=== PATIENT | female | born 1975 | race Caucasian/White ===

== ENCOUNTER 2016-08-10 17:45 | Emergency (ER) | payer MEDICAID, OTHER ==
[~2016-08-10] VITALS: Ht 175.3 cm; Wt 77.1 kg
[~2016-08-10 17:45] MED LIST: CITA-30
[2016-08-10 19:38] LABS: Basophils # (auto) 0 uL; Basophils % (auto) 0.7 % (0.0-2.0); Eosinophils # (auto) 0.1 uL; Eosinophils % (auto) 1.7 % (0.0-7.0); Lymphocytes # (auto) 1.3 uL; Lymphocytes % (auto) 21.7 % (10.0-50.0); Mean Corpuscular Hemoglobin 28.3 pg (28.0-32.0); Mean Corpuscular Hgb Conc. 32.5 g/dL (32.0-36.0); Mean Corpuscular Volume 86.8 fL (80.0-100.0); Mean Platelet Volume 9.9 fL (7.4-10.4); Monocytes # (auto) 0.2 uL; Monocytes % (auto) 3.9 % (0.0-12.0); Neutrophils # (auto) 4.3 uL; Platelet Count (auto) 271 10^3/uL (140-450); Red Cell Distribution Width 14.6 % (11.6-16.0); SUSPECT VIEW TRANSMISSION; White Blood Cell 5.9 10^3/uL (4.4-10.8)
[2016-08-10 19:39] LABS: Albumin 4.2 g/dL (3.4-5.0); Alkaline Phosphatase 41 U/L (45-117); Anion Gap 11 (5-15); Aspartate Aminotransferase 17 U/L (15-37); Bilirubin, Total 0.3 mg/dL (0.2-1.0); Blood Urea Nitrogen 11 mg/dL (7-18); Calcium 9.2 mg/dL (8.5-10.1); Carbon Dioxide 26 mmol/L (21-32); Chloride 106 mmol/L (98-107); GFR African American 78 mL/min; GFR Non-African American 64 mL/min; Glucose 87 mg/dL (74-106); Potassium 4.1 mmol/L (3.5-5.1); Sodium 143 mmol/L (136-145); Total Protein 7.6 g/dL (6.4-8.2)
[2016-08-10 23:25] LABS: Urine Bilirubin Negative (Negative); Urine Blood TRACE /uL (Negative); Urine Color Yellow (Yellow); Urine Glucose Normal (Normal); Urine Nitrite Negative (Negative); Urine RBC 4 /hpf (0 - 4); Urine Squamous Epithelial Cell FEW /hpf (<5); Urine Urobilinogen Normal (Negative)
[2016-08-10 23:26] LABS: Urine Ketone 1+ (Negative)
[2016-08-10] MEDS ORDERED: LORazepam 0.5 MG TAB PO ONE (23:45)
[2016-08-11] MEDS ORDERED: ACETAMINOPHEN 325 MG TAB PO ONE ×2 (00:15)
[2016-08-11 01:33] VITALS: BP 113/68
== END 2016-08-11 01:43 | disposition home or self-care (01) ==
LOC: ER 17:47
DX: R20.2 Paresthesia of skin (principal); R51 Headache; R06.02 Shortness of breath; G89.29 Other chronic pain; M54.9 Dorsalgia, unspecified; Z88.6 Allergy status to analgesic agent
CPT/HCPCS: 36415; 70450; 80053; 81001; 81025; 84484; 85025; 93005

== ENCOUNTER 2017-02-08 01:27 | Emergency (ER) | payer MEDICAID ==
[~2017-02-08] VITALS: Ht 175.3 cm; Wt 72.6 kg
[~2017-02-08 01:27] MED LIST changes: +ACET650T11 PO; +ASPI1TAB PO; +BACL10TA PO; +BUPR75TA9 PO; -CITA-30; +FLUT50SP13; +GABA-494 PO; +LORA-622 PO
[2017-02-08 02:37] LABS: Basophils # (auto) 0.1 uL; Eosinophils # (auto) 0.3 uL; Hemoglobin 10.8 g/dL (12.2-16.2); Lymphocytes # (auto) 1.4 uL; Mean Corpuscular Volume 83.3 fL (80.0-100.0); Mean Platelet Volume 8.9 fL (6.9-10.8); Neutrophils # (auto) 3.1 uL; White Blood Cell 5.2 10^3/uL (4.4-10.8)
[2017-02-08 02:38] LABS: Eosinophils % (auto) 4.8 % (0.0-7.0); Hematocrit 33.3 % (36.0-46.0); Lymphocytes % (auto) 26.5 % (10.0-50.0); Mean Corpuscular Hemoglobin 27.1 pg (28.0-32.0); Mean Corpuscular Hgb Conc. 32.6 g/dL (32.0-36.0); Monocytes # (auto) 0.4 uL; Monocytes % (auto) 7.5 % (0.0-12.0); Neutrophils % (auto) 60.2 % (37.0-80.0); Platelet Count (auto) 225 10^3/uL (140-450); Red Cell Distribution Width 14.4 % (11.8-14.3)
[2017-02-08 02:54] LABS: Albumin 3.8 g/dL (3.4-5.0); Anion Gap 11 (5-15); Aspartate Aminotransferase 15 U/L (15-37); BUN/Creatinine Ratio 16.2; Blood Urea Nitrogen 17 mg/dL (7-18); Calcium 9.2 mg/dL (8.5-10.1); Carbon Dioxide 24 mmol/L (21-32); Chloride 108 mmol/L (98-107); GFR African American 74 mL/min; GFR Non-African American 61 mL/min; Glucose 95 mg/dL (74-106); Partial Thromboplastin Time 25.9 sec (22.64-33.71); Prothrombin Time 10.9 sec (9.37-12.3); Sodium 143 mmol/L (136-145)
[2017-02-08 02:58] LABS: Alkaline Phosphatase 38 U/L (45-117); Bilirubin, Total 0.3 mg/dL (0.2-1.0); Total Protein 7.1 g/dL (6.4-8.2)
[2017-02-08] MEDS ORDERED: KETOROLAC TROMETH 60MG/2ML VIAL IM ONE (06:45)
[2017-02-08 07:03] VITALS: BP 117/54
== END 2017-02-08 08:13 | disposition home or self-care (01) ==
LOC: EDBD 01:27 → ER 01:27
DX: R07.89 Other chest pain (principal); R10.13 Epigastric pain; G89.29 Other chronic pain; Z79.82 Long term (current) use of aspirin; Z79.899 Other long term (current) drug therapy; Z90.49 Acquired absence of other specified parts of digestive tract
CPT/HCPCS: 36415; 71020; 80053; 84484; 84702; 85025; 85610; 85730; 93005; 96372; 99285; J1885

== ENCOUNTER 2017-02-21 22:31 | Emergency (ER) | payer MEDICAID ==
[~2017-02-21] VITALS: Ht 175.3 cm; Wt 72.6 kg
[2017-02-21 23:13] LABS: Basophils # (auto) 0 uL; Basophils % (auto) 0.8 % (0.0-2.0); Eosinophils # (auto) 0.2 uL; Eosinophils % (auto) 5.6 % (0.0-7.0); Hematocrit 32.7 % (36.0-46.0); Hemoglobin 10.6 g/dL (12.2-16.2); Lymphocytes % (auto) 27.7 % (10.0-50.0); Mean Corpuscular Hgb Conc. 32.6 g/dL (32.0-36.0); Mean Corpuscular Volume 82.8 fL (80.0-100.0); Monocytes # (auto) 0.4 uL; Monocytes % (auto) 10.5 % (0.0-12.0); Neutrophils % (auto) 55.4 % (37.0-80.0); Nucleated Red Blood Cells % 0.1 %; Platelet Count (auto) 218 10^3/uL (140-450); Red Blood Cells 3.95 10^6/uL (4.0-5.20); Red Cell Distribution Width 14.6 % (11.8-14.3); White Blood Cell 3.7 10^3/uL (4.4-10.8)
[2017-02-21 23:29] LABS: BUN/Creatinine Ratio 10.6; Calcium 8.9 mg/dL (8.5-10.1)
[2017-02-21 23:42] LABS: Potassium 2.7 mmol/L (3.5-5.1)
[2017-02-21 23:46] LABS: Bilirubin, Total 0.4 mg/dL (0.2-1.0); Total Protein 7.2 g/dL (6.4-8.2)
[2017-02-22 02:08] LABS: Urine Bacteria NONE SEEN /hpf (None Seen); Urine Blood TRACE /uL (Negative); Urine Specific Gravity 1.003 (1.001-1.035); Urine WBC 1 /hpf (0 - 5)
[2017-02-22 02:25] LABS: Alcohol, Urine < 3.0 mg/dL (0-5); Amphetamine Screen, Urine NEGATIVE (NEGATIVE); Barbiturate Scree,Urine NEGATIVE (NEGATIVE); Benzodiazephine Screen, Urine NEGATIVE (NEGATIVE); Cannabinoid Screen, Urine NEGATIVE (NEGATIVE); Cocaine Screen, Urine NEGATIVE (NEGATIVE); Opiate Scree,Urine NEGATIVE (NEGATIVE); Phencyclidine Screen, Urine NEGATIVE (NEGATIVE)
[2017-02-22] MEDS ORDERED: POTASSIUM CHL 20 Meq TABLET PO ONE ×2 (05:15→06:30)
[2017-02-22 05:36] VITALS: BP 127/82
== END 2017-02-22 06:23 | disposition home or self-care (01) ==
LOC: EDBD 22:31 → EDUNIT# 22:31 → ER 22:34
DX: R53.1 Weakness (principal); E87.6 Hypokalemia; H53.8 Other visual disturbances; R07.9 Chest pain, unspecified; Z79.82 Long term (current) use of aspirin; Z88.8 Allergy status to other drugs, medicaments and biological substances
CPT/HCPCS: 36415; 80053; 80307; 81001; 85025

== ENCOUNTER 2017-02-22 08:00 | Emergency (ER) | payer MEDICAID ==
[~2017-02-22] VITALS: Ht 175.3 cm; Wt 72.6 kg
[2017-02-22 08:59] VITALS: BP 118/62
== END 2017-02-22 10:48 | disposition home or self-care (01) ==
LOC: ER 08:00
DX: H53.8 Other visual disturbances (principal); T50.905A Adverse effect of unspecified drugs, medicaments and biological substances, initial encounter; R53.1 Weakness; R07.9 Chest pain, unspecified; R51 Headache; Y92.89 Other specified places as the place of occurrence of the external cause; Z90.49 Acquired absence of other specified parts of digestive tract; Z79.82 Long term (current) use of aspirin; Z88.6 Allergy status to analgesic agent

== ENCOUNTER 2017-04-16 17:02 | Emergency (ER) | payer MEDICAID ==
[~2017-04-16] VITALS: Ht 175.3 cm; Wt 70.3 kg
[~2017-04-16 17:02] MED LIST changes: -ACET650T11 PO; +ACET650T12 PO
[2017-04-16 19:21] LABS: Basophils # (auto) 0.1 uL; Eosinophils # (auto) 0.3 uL; Lymphocytes # (auto) 1.3 uL; Mean Corpuscular Hemoglobin 26.4 pg (28.0-32.0); Monocytes # (auto) 0.4 uL; Red Cell Distribution Width 15.8 % (11.8-14.3); White Blood Cell 5.9 10^3/uL (4.4-10.8)
[2017-04-16 19:24] LABS: Basophils % (auto) 1.2 % (0.0-2.0); Eosinophils % (auto) 4.3 % (0.0-7.0); Hematocrit 36.5 % (36.0-46.0); Hemoglobin 11.8 g/dL (12.2-16.2); Lymphocytes % (auto) 21.7 % (10.0-50.0); Mean Corpuscular Hgb Conc. 32.4 g/dL (32.0-36.0); Mean Corpuscular Volume 81.7 fL (80.0-100.0); Monocytes % (auto) 6.9 % (0.0-12.0); Neutrophils # (auto) 3.9 uL; Neutrophils % (auto) 65.9 % (37.0-80.0); Nucleated Red Blood Cells % 0.2 %; Platelet Count (auto) 257 10^3/uL (140-450); Red Blood Cells 4.47 10^6/uL (4.0-5.20)
[2017-04-16 19:41] LABS: Albumin 4.2 g/dL (3.4-5.0); Calcium 9.1 mg/dL (8.5-10.1); Potassium 3.5 mmol/L (3.5-5.1)
[2017-04-16 19:43] LABS: BUN/Creatinine Ratio 11.8
[2017-04-16 19:45] LABS: Bilirubin, Total 0.5 mg/dL (0.2-1.0); Total Protein 8.2 g/dL (6.4-8.2)
[2017-04-17 00:11] LABS: Urine Bacteria NONE SEEN /hpf (None Seen); Urine Blood TRACE /uL (Negative); Urine Specific Gravity 1.018 (1.001-1.035); Urine WBC 2 /hpf (0 - 5)
[2017-04-17] MEDS ORDERED: DONNATAL 5ml ORAL Elix (BELLADONNA ALK-PHENOBARB) PO ONE (08:30)
[2017-04-17] MEDS ORDERED: LIDOCAINE VISCOUS 2% 15ML UD PO ONE (08:30)
[2017-04-17] MEDS ORDERED: ALUM & MAG HYDROX-SIMETH LIQ(MAALOX) 30 ML PO ONE (08:30)
[2017-04-17] MEDS ORDERED: LORazepam 0.5 MG TAB PO ONE (09:30)
[2017-04-17] MEDS ORDERED: PROMETHAZINE HCL 6.25 MG/5 ML ORAL SYRUP PO ONE (09:45)
[2017-04-17] MEDS ORDERED: IOHEXOL 350 MG/ML 100ML IJ ONE (10:33)
[2017-04-17 12:13] VITALS: BP 114/68
== END 2017-04-17 12:36 | disposition home or self-care (01) ==
LOC: EDBD 17:02 → ER 17:12
DX: K29.70 Gastritis, unspecified, without bleeding (principal); K21.9 Gastro-esophageal reflux disease without esophagitis; Z90.49 Acquired absence of other specified parts of digestive tract; Z79.82 Long term (current) use of aspirin
CPT/HCPCS: 36415; 71275; 80053; 81001; 85025; 93005; 99285; Q9967

== ENCOUNTER 2017-06-08 12:42 | Emergency (ER) | payer MEDICAID ==
[~2017-06-08] VITALS: Ht 175.3 cm; Wt 67.1 kg
[~2017-06-08 12:42] MED LIST changes: -GABA-494 PO; +GABA100C9 PO
[2017-06-08] MEDS ORDERED: PANT40TA2 PO (13:20)
[2017-06-08] MEDS ORDERED: ALPR0.25 PO (13:20)
[2017-06-08] MEDS ORDERED: ZOLP10TA PO (13:20)
[2017-06-08] MEDS ORDERED: SUCR1TAB38 PO (13:20)
[2017-06-08 14:51] LABS: Urine Bacteria NONE SEEN /hpf (None Seen); Urine Blood TRACE /uL (Negative); Urine Specific Gravity 1.005 (1.001-1.035); Urine WBC 1 /hpf (0 - 5)
[2017-06-08 15:33] VITALS: BP 121/77
== END 2017-06-08 15:49 | disposition home or self-care (01) ==
LOC: ER 12:42 → EDUNIT# 12:42 → EDBD 12:42 → ER 15:49
DX: R20.0 Anesthesia of skin (principal); F41.9 Anxiety disorder, unspecified; E16.2 Hypoglycemia, unspecified; K21.9 Gastro-esophageal reflux disease without esophagitis; M54.5 Low back pain; G89.29 Other chronic pain; Z88.8 Allergy status to other drugs, medicaments and biological substances; Z88.6 Allergy status to analgesic agent; Z79.899 Other long term (current) drug therapy; Z90.49 Acquired absence of other specified parts of digestive tract
CPT/HCPCS: 70450; 81001; 81025; 82962

== ENCOUNTER 2018-07-05 03:21 | Emergency (ER) | payer MEDICAID ==
[~2018-07-05] VITALS: Ht 177.8 cm; Wt 81.6 kg
[~2018-07-05 03:21] MED LIST changes: +ALPR0.25 PO; +PANT40TA2 PO; +SUCR1TAB38 PO; +ZOLP10TA PO
[2018-07-05 03:30] VITALS: BP 123/81
[2018-07-05] MEDS ORDERED: KETOROLAC TROMETH 60MG/2ML VIAL IM ONE (06:30)
[2018-07-05] MEDS ORDERED: PROMETHAZINE HCL 25 MG/ML 1ML IM ONE (06:30)
== END 2018-07-05 07:26 | disposition home or self-care (01) ==
LOC: EDBD 03:21 → ER 03:23
DX: M54.5 Low back pain (principal); T40.2X5A Adverse effect of other opioids, initial encounter; M54.2 Cervicalgia; K21.9 Gastro-esophageal reflux disease without esophagitis; R10.9 Unspecified abdominal pain; R11.0 Nausea; Z90.49 Acquired absence of other specified parts of digestive tract; Z88.6 Allergy status to analgesic agent; Y92.89 Other specified places as the place of occurrence of the external cause
CPT/HCPCS: 93005; 96372; 99283; J1885; J2550

== ENCOUNTER 2019-03-01 06:23 | Emergency (ER) | payer MEDICAID ==
[~2019-03-01] VITALS: Ht 170.2 cm; Wt 68.0 kg
[2019-03-01] MEDS ORDERED: SODIUM CHLORIDE 0.9% 1,000 ML IV ONE (07:24)
[2019-03-01] MEDS ORDERED: PANTOPRAZOLE 40 MG TAB PO ONE (07:30)
[2019-03-01 08:24] LABS: Eosinophils # (auto) 0.1 uL; Hemoglobin 11.6 g/dL (12.2-16.2); Lymphocytes # (auto) 0.4 uL; Monocytes # (auto) 0.2 uL; Red Blood Cells 3.46 10^6/uL (4.0-5.20)
[2019-03-01 08:26] LABS: Albumin 3.9 g/dL (3.4-5.0); Magnesium 2.2 mg/dL (1.6-2.6); Potassium 3.7 mmol/L (3.5-5.1)
[2019-03-01 08:27] LABS: Basophils # (auto) 0 uL; Basophils % (auto) 2.7 % (0.0-2.0); Eosinophils % (auto) 4.7 % (0.0-7.0); Hematocrit 33.3 % (36.0-46.0); INR 0.98 (0.9-1.15); Lymphocytes % (auto) 26.1 % (10.0-50.0); Mean Corpuscular Hemoglobin 33.6 pg (28.0-32.0); Mean Corpuscular Hgb Conc. 34.9 g/dL (32.0-36.0); Mean Corpuscular Volume 96.3 fL (80.0-100.0); Monocytes % (auto) 12.2 % (0.0-12.0); Neutrophils # (auto) 0.8 uL; Neutrophils % (auto) 54.3 % (37.0-80.0); Nucleated Red Blood Cells % 0.2 %; Partial Thromboplastin Time 25.7 sec (23.64-32.05); Platelet Count (auto) 117 10^3/uL (140-450); Red Cell Distribution Width 13.7 % (11.8-14.3)
[2019-03-01 08:30] LABS: White Blood Cell 1.4 10^3/uL (4.4-10.8)
[2019-03-01 08:33] LABS: BUN/Creatinine Ratio 19.8; Bilirubin, Total 0.3 mg/dL (0.2-1.0); Total Protein 7.1 g/dL (6.4-8.2)
[2019-03-01 09:02] LABS: Urine Bacteria NONE SEEN /hpf (None Seen); Urine Blood Negative /uL (Negative); Urine Specific Gravity 1.004 (1.001-1.035); Urine WBC <1 /hpf (0 - 5)
[2019-03-01 10:00] VITALS: BP 118/54
== END 2019-03-01 10:10 | disposition home or self-care (01) ==
LOC: EDBD 06:23 → ER 06:24
DX: R07.2 Precordial pain (principal); E03.9 Hypothyroidism, unspecified; C50.911 Malignant neoplasm of unspecified site of right female breast; K21.9 Gastro-esophageal reflux disease without esophagitis; Z90.49 Acquired absence of other specified parts of digestive tract; Z88.8 Allergy status to other drugs, medicaments and biological substances; Z79.82 Long term (current) use of aspirin; Z79.899 Other long term (current) drug therapy
CPT/HCPCS: 36415; 71046; 80053; 81001; 83735; 84443; 84484; 85025; 85379; 85610; 85730; 93005; 99284; J7030